=== PATIENT | male | born 1995 | race African-American/Black ===

== ENCOUNTER 2017-03-08 17:28 | Emergency (ER) | payer OTHER, MEDICAID ==
[~2017-03-08] VITALS: Ht 180.3 cm; Wt 61.2 kg
[2017-03-08] MEDS ORDERED: DIPHTH,PERTUSS(ACELL),TET TOX 0.5 ML DISP.SYRIN. VAX IM ONE (17:45)
[2017-03-08] MEDS ORDERED: ONDANSETRON PF 4 MG/2 ML VIAL. IV ONE (17:45)
[2017-03-08] MEDS ORDERED: IV NORMAL SALINE 1000ML BAG 1,000 ML IV SCH (17:45)
[2017-03-08] MEDS ORDERED: HYDROmorphone 2 MG/ML VIAL IV/SQ PRN (17:45)
[2017-03-08] MEDS ORDERED: 0.9 % SODIUM CHLORIDE 10 ML DISP.SYRIN. IV PRN (17:45)
--- NOTE | 2017-03-08 17:45 | PHYS DOC ---
Past Medical History Past Medical History: No Pertinent History Past Surgical History: No Surgical History Alcohol Use: None Adult General Chief Complaint Chief Complaint: LACERATION/AVULSION HPI HPI he is a pleasant otherwise healthy 22-year-old male who is removing some tree debris today was actually struck by another chainsaw over the heel of the left foot. He was booted and had a sock on the cough is boot and noticed increased bleeding and significant pain in the foot. Patient denies any other injuries, numbness and tinea to the foot or distal to the injury. He is pain is severe 10 of 10 at this time and active bleeding is controlled with direct pressure. Patient denies any prior injury to this foot. Review of Systems Review of Systems Respiratory: Denies cough or shortness of breath [] Cardiovascular: No additional information not addressed in HPI [] GI: Denies abdominal pain, Musculoskeletal: His only complaint is left foot pain over the heel. Integument: Denies rash or skin lesions [] Neurologic: Denies headache, focal weakness or sensory changes [] Current Medications Current Medications Current Medications Medications (Trade) Dose Ordered Sig/Maria E Start Time Stop Time Status Last Admin Dose Admin Diphtheria/ Tetanus/Acell Pertussis (Boostrix) 0.5 ml ONCE ONCE 03/08/17 17:45 03/08/17 17:46 DC 03/08/17 18:14 0.5 ML Hydromorphone HCl (Dilaudid) 1 mg PRN Q15MIN PRN 03/08/17 17:45 03/09/17 17:44 03/08/17 18:02 1 MG Lidocaine/Sodium Bicarbonate (Buffered Lidocaine 1%) 20 ml 1X ONCE 03/08/17 18:30 03/08/17 18:31 DC 03/08/17 18:34 20 ML Ondansetron HCl (Zofran) 4 mg 1X ONCE 03/08/17 17:45 03/08/17 17:46 DC 03/08/17 17:59 4 MG Sodium Chloride (Normal Saline Flush) 10 ml QSHIFT PRN 03/08/17 17:45 Allergies Allergies Allergies Coded Allergies Type Severity Reaction Last Updated Verified No Known Drug Allergies 03/08/17 No Physical Exam Physical Exam Constitutional: Well developed, well nourished, no acute distress, non-toxic appearance. [] Cardiovascular:Heart rate regular rhythm, no murmur [] Lungs & Thorax: Bilateral breath sounds clear to auscultation [] Skin: Warm, dry, no erythema, no rash. [] Back: No tenderness, no CVA tenderness. [] Extremities: he has a very large laceration and defect to the posterior aspect of the calcaneus. It measures probably 4 cm in length 1 cm in width and 1 cm in depth. It is actively bleeding with no obvious foreign body. There is no tendon involvement patient's Achilles mechanism seems to be intact Gonzalez test is negative Neurologic: Alert and oriented X 3, normal motor function, normal sensory function, no focal deficits noted. [] Psychologic: he is very anxious but lucid and appropriate. Current Patient Data Vital Signs Vital Signs Date Time Temp Pulse Resp B/P (MAP) Pulse Ox O2 Delivery O2 Flow Rate FiO2 03/08/17 18:02 20 98 Room Air 03/08/17 17:28 97.9 130 166/101 (122) 97.9 EKG EKG [] Radiology/Procedures Radiology/Procedures Indication: Left heel laceration Procedure: The patient was placed in the appropriate position and anesthesia around the laceration was 1% buffered lidocaine approximately 10 ML's. The area was then cleaned and abraded with a surgical sponge and 2 L normal saline. The laceration was and closed with a locking running stitch and 9 stitches replaced with 3-0 silk. The wound area was then dressed with Xeroform and then 4 x 4 and Coban. Total repaired wound length: 6 cm. Other Items: none The patient tolerated the procedure tolerated. Complications: none.[] Course & Med Decision Making Course & Med Decision Making Pertinent Labs and Imaging studies reviewed. (See chart for details) At this time is to image the wound to ensure that no bony involvement has occurred, patient will have the wound irrigated and repaired if appropriate. Patient will be provided a dose of IV antibiotics if bone involvement is noted. The wound is clean this juncture as I can see at time of arrival but we irrigated out and evaluate the floor the wound as possible. Patient is given IV fluids and pain medications and nausea medications as well as a updated tetanus shot as he is waiting for sounds be completed. I'll be turned over to oncoming physician Dr. Leonela Leung pending x-ray findings and repair the laceration. Time is now 1800 hrs. 1814: I took over care of the patient from Dr. Perez. The wound was anesthetized with lidocaine and thoroughly irrigated and washed out with removal foreign bodies. The wound was closed at bedside. Wound care was discussed with the patient and explained to the patient that he needs his sutures need to be removed in 7-10 days. Strict return precautions were given. Patient is stable for discharge. [] Dragon Disclaimer Dragon Disclaimer This electronic medical record was generated, in whole or in part, using a voice recognition dictation system. Departure Departure Impression: Primary Impression: Foot laceration Disposition: 01 HOME, SELF-CARE Condition: IMPROVED Patient Instructions: Laceration Care, Adult, [id number] Additional Instructions: Please follow-up with your family physician in 7-10 days for suture removal and please watch for signs of infection and if infection occurs please return immediately to the emergency room Scripts Cephalexin (KEFLEX) 500 Mg Capsule 1 CAP PO TID for 10 Days, #30 CAP Prov: LEONELA LEUNG DO 03/08/17 CHARLIE LEOS MD Mar 08, 2017 17:45 LEONELA LEUNG DO Mar 08, 2017 19:11
[2017-03-08] MEDS ORDERED: LIDOCAINE 1% / SOD BICARB 8.4% 20 ML VIAL. IJ ONE (18:30)
[2017-03-08] MEDS ORDERED: CEPH-264 PO (19:11)
[2017-03-08 19:20] VITALS: BP 133/79
--- NOTE | 2017-03-09 08:23 | RAD ---
3 views left foot 03/08/2017 7:38 PM Indication: trauma to heel Comparison: None Findings: There is no fracture or dislocation identified. Articular surfaces are uninterrupted. Mild soft tissue irregularity is noted about the heel. No radiopaque foreign bodies are identified. Impression: No evidence of acute osseous abnormality
== END 2017-03-08 19:30 | disposition home or self-care (01) ==
LOC: ER 17:28
DX: S91.312A Laceration without foreign body, left foot, initial encounter (principal); W29.3XXA Contact with powered garden and outdoor hand tools and machinery, initial encounter; Y93.89 Activity, other specified; Y92.89 Other specified places as the place of occurrence of the external cause; Y99.8 Other external cause status
CPT/HCPCS: 12002; 73630; 90471; 90715; 96361; 96374; 96375; 99284; J1170; J2405; J7030